=== PATIENT | female | born 1970 | race Caucasian/White ===

== ENCOUNTER 2017-01-02 09:00 | Inpatient (IN) | payer BC ==
[~2017-01-02] VITALS: Ht 170.2 cm; Wt 130.9 kg
--- NOTE | ~2017-01-02 | DS ---
[facility] 46 Y [address] [place]OM: [facility] [place] [place], [place] [address] LOCATION: [facility] ADMIT DATE: 01/08/2017 Discharge Summary DISCHARGE DATE: 01/10/2017 FAMILY PHYSICIAN: Clair Vera PA-C ATTENDING PHYSICIAN: Jeff Quan PRIMARY DIAGNOSIS: Degenerative joint disease of the left knee. SECONDARY DIAGNOSES: 1. Bipolar. 2. Hypothyroidism. 3. Diabetes mellitus type 2. 4. Hypertension. 5. Obstructive sleep apnea, on CPAP. 6. Fibromyalgia. 7. Obesity, BMI of 44. PROCEDURE PERFORMED: Left total knee arthroplasty with computer navigation. HISTORY: The patient is a 46-year-old female, who presents with advanced left knee degenerative joint disease and associated severely compromised activities of daily living. The patient has decided to proceed with total knee arthroplasty after having been thoroughly counseled regarding the risks, benefits, limitations and alternatives. Please refer to the outpatient clinic notes and admission history and physical for this patient. HOSPITAL COURSE: The patient underwent a left total knee arthroplasty on 01/08/2017 without complications. Spinal anesthesia plus adductor canal block plus periarticular local anesthesia was utilized. The patient received 24 hours of perioperative prophylactic antibiotics and remained hemodynamically stable, neurovascularly intact throughout the entire hospital course. The postoperative prophylactic deep venous thrombosis prophylaxis consisted of Xarelto 10 mg, early mobilization and pneumatic compression devices. Daily physical therapy for gait training, transfer training range of motion and quadriceps isometric exercises were received. The patient progressed well in physical therapy. On the date of discharge, 01/10/2017, the incision at the knee was healing well and showed no signs of infection. DISPOSITION: Home. DISCHARGE ACTIVITY: The patient is to bear weight as tolerated with range of motion and quadriceps isometric exercises as instructed. The operative extremity is to be elevated at least 90% of the day. There is to be sterile 4x4 gauze dressings to the incision daily. Dr. Quan is to be notified immediately if there is any increased pain, fevers, chills erythema or PATIENT'S NAME: MILAGROS DOBBS [facility] AGE: 46 Y [address] ROOM: [facility] [address] [place], [place] [address] LOCATION: [facility] ADMIT DATE: 01/08/2017 Discharge Summary DISCHARGE DATE: 01/10/2017 FAMILY PHYSICIAN: Clair Vera PA-C ATTENDING PHYSICIAN: Jeff Quan. DISCHARGE MEDICATIONS: 1. Xarelto 10 mg, take 1 tab p.o. daily for DVT prevention. 2. [place] 3/325, take 1-2 tablets p.o. every 4 hours as needed for pain. FOLLOWUP: Followup appointment is to be with Dr. Quan on 01/15/2017 for initial postoperative evaluation and x-rays at that time. BALTA BELL FOR JEFF QUAN MD TLB/modl /[id number] d: 01/17/17 0300 t: 01/22/17 0926, DISCHARGE SUMMARY
--- NOTE | ~2017-01-02 | OR ---
PATIENT'S NAME: MILAGROS DOBBS [facility] AGE: 46 Y [address] ROOM: [place] [address] LOCATION: [facility] ADMIT DATE: 01/08/2017 OR/Procedure Report DISCHARGE DATE: FAMILY PHYSICIAN: Clair Vera PA-C ATTENDING PHYSICIAN: JEFF QUAN SURGEON: Jeff Quan MD CELLOPHANE PRESS OPERATOR: Stewart Hernández PA-C and Dominick Barillas FINISHING RANGE FEEDER/DIPLOMA MAKER. DATE OF PROCEDURE: 01/08/2017 PRE-OP DIAGNOSIS: Degenerative joint disease, left knee. POST-OP DIAGNOSIS: Degenerative joint disease, left knee. OPERATION: Left total knee arthroplasty with computer navigation. ANESTHESIA: Spinal anesthesia plus adductor canal block plus periarticular local anesthesia (ropivacaine with epinephrine and Toradol). ESTIMATED BLOOD LOSS: Less than 10 mL. DRAIN: None. SPECIMEN: None. COMPLICATIONS: None. IMPLANT SYSTEM: [place] Triathlon: Size 4 left posterior stabilized femoral component. Size 3 [place] modular tibial baseplate. An 11 mm posterior stabilized size 4 X3 tibial polyethylene insert. A 32 mm oval X3 patella component (triple pegged). INDICATIONS FOR SURGERY: The patient is a 46-year-old female who presents with advanced left knee degenerative joint disease and associated severely compromised activities of daily living. The patient has decided to proceed with knee replacement after having been thoroughly counseled regarding the associated risks, benefits, and limitations. We have specifically reviewed the risks and implications of infection, deep venous thrombosis, pulmonary embolism, mortality, neurovascular complications, blood transfusion (and associated potential for disease transmission or transfusion reaction), stiffness, instability, mechanical deterioration of the components (due to wear and or loosening), and the potential need for revision. We have also emphasized the importance of active involvement and compliance with post- operative physical therapy as a means of optimizing range of motion and PATIENT'S NAME: MILAGROS DOBBS [facility] AGE: 46 Y [address] ROOM: [place] [address] LOCATION: [facility] ADMIT DATE: 01/08/2017 OR/Procedure Report DISCHARGE DATE: FAMILY PHYSICIAN: Clair Vera PA-C ATTENDING PHYSICIAN: JEFF QUAN functional recovery. Informed consent has been granted. DESCRIPTION OF PROCEDURE: The patient was positioned supine after administration of anesthesia and prophylactic antibiotics. A well-padded pneumatic tourniquet was placed around the left proximal thigh, and the left lower extremity was prepped and draped with vigilant sterile technique. The patient's name as well as the intended operative side and procedure were confirmed with a verbal time-out involving myself, the circulating nurse, the scrub nurse, and the anesthesiologist. Examination under anesthesia demonstrated no active skin lesions or masses. There was some moderate effusion. There was no erythema. There was no abnormal warmth. Range of motion under anesthesia was from full extension to 130 degrees of flexion. There was no ligamentous insufficiency. The left lower extremity was elevated and exsanguinated with an Esmarch wrap, and the pneumatic tourniquet was inflated to 300mmHg. The knee was approached through a longitudinal midline incision. A medial parapatellar arthrotomy was performed and the patella was everted. Examination of the joint space demonstrated a large amount of benign-appearing translucent synovial fluid. There was generalized non-proliferative synovitis. There was a small osteophyte at the intercondylar notch. Cruciate ligaments were intact. There was full-thickness loss of articular cartilage involving the lateral half of the femoral trochlea, the lateral 2/3rd of the patella, 90% of the medial femoral condyle, and the anteromedial 60% of the medial tibial plateau. There were small osteophytes at the medial tibial plateau as well as the superior femoral trochlea and the medial femoral trochlea. There was a moderate-sized osteophyte at the lateral margin of the femoral trochlea. There was a moderate-sized osteophyte at the medial femoral condyle. There was a 1 x 5 mm region of full-thickness articular cartilage loss at the lateral femoral condyle. There was generalized grade 2 chondromalacia at the lateral tibial plateau. Remnants of the menisci and cruciate ligaments were excised. The [employer] Frequency computer navigation femoral tracker was pinned in place at the distal aspect of the femoral trochlea. Absence of motion between the femur and the tracking device was confirmed manually and visually. Femoral osseous landmarks were obtained in order to calibrate the computer navigation system. Landmarks included the center of rotation of the ipsilateral hip, the center-point of the distal femur, the femoral AP axis, 57 points on the medial femoral condyle articular surface, and 57 points on the lateral femoral condyle articular surface. The Sky Frequency computer navigation system was subsequently utilized to position the distal femoral resection block such that the distal femoral resection was performed perfectly perpendicular to the femoral mechanical PATIENT'S NAME: MILAGROS DOBBS [facility] AGE: 46 Y [address] ROOM: [address] [address] LOCATION: [facility] ADMIT DATE: 01/08/2017 OR/Procedure Report DISCHARGE DATE: FAMILY PHYSICIAN: Clair Vera PA-C ATTENDING PHYSICIAN: JEFF QUAN. The distal femoral resection was performed with a Mixaloo oscillating saw. The Sky Frequency computer navigation tibial tracker was pinned in place at the anterior aspect of the tibial plateau. Absence of motion between the tibia and the tracking device was confirmed manually and visually. Tibial osseous landmarks were obtained in order to calibrate the computer navigation system. Landmarks included the center-point of the tibial plateau, the AP tibial axis, 57 points on the medial tibial plateau articular surface, 57 points on the lateral tibial plateau articular surface, the medial malleolus, and the lateral malleolus. The Sky Frequency computer navigation system was subsequently utilized to position the proximal tibial resection block such that the proximal tibial resection was performed perfectly perpendicular to the tibial mechanical axis. The proximal tibial resection was performed with a [employer] Precision oscillating saw. Perpendicularity of the tibial resection with respect to the tibial shaft axis was reconfirmed by inserting a spacer- block attached to an extramedullary guide sue. External rotation of the anterior and posterior femoral resections was set parallel to the epicondylar axis and carefully adjusted in order to create a rectangular flexion gap. The box resection was performed with a reciprocating saw. Anterior and posterior chamfer resections were performed with the oscillating saw. Posterior condyle osteophytes were excised with an osteotome. All other osteophytes were excised with a rongeur. Resection of all remnants of the menisci was reconfirmed. Flexion and extension gaps were confirmed to be symmetric and well balanced with a spacer-block technique. The patella resection was performed with an oscillating saw such that the composite thickness of the reconstructed patella was equivalent to the thickness of the shawnee patella. Patella tracking was optimal, and there was no need for a lateral retinacular release. All trial components were removed and all prepared osseous surfaces were thoroughly irrigated with pulsatile saline lavage and dried prior to cementing all three components in a single stage using Joyce Simplex cement containing pre-mixed tobramycin. All extruded excess cement was removed. The entire joint space was thoroughly inspected and thoroughly irrigated with bacteriostatic pulsatile saline lavage to assure that there was no residual debris of any sort. Final range of motion was from full extension (with no passive hyperextension) to 130 degrees of flexion. Patella tracking was reconfirmed to be optimal. There was very good anteroposterior stability at 90 degrees of flexion. There was 0 mm of medial lift-off to valgus stress in full extension. There was 0 mm of lateral lift-off to varus stress in full extension. PATIENT'S NAME: MILAGROS DOBBS [facility] AGE: 46 Y [address] ROOM: [place] [address] LOCATION: [facility] ADMIT DATE: 01/08/2017 OR/Procedure Report DISCHARGE DATE: FAMILY PHYSICIAN: Clair Vera PA-C ATTENDING PHYSICIAN: JEFF QUAN The arthrotomy was closed with multiple simple and [id number] interrupted #1 Vicryl. Subcutaneous tissues were thoroughly re-irrigated with bacteriostatic pulsatile saline lavage. Subcutaneous tissues were re- approximated with simple buried interrupted #0 Vicryl sutures. The skin was closed with simple buried interrupted 2-0 Vicryl sutures followed by surgical reji. The dressing consisted of Xeroform gauze, 4x4 gauze, ABD pads and two 6-inch Anthony Wraps. There were no intra-operative complications. It should be noted that the physician's assistant basketball coach played an active, integral role throughout this entire operation. By providing expert retraction, they greatly facilitated and expedited safe and effective exposure of the distal femur, proximal tibia and patella for preparation and implantation of the components. They were also actively involved in the patient's positioning, prepping and draping, as well as wound closure. MD ARLETTE ROGERS/kevon /[id number] d: 01/08/172000 t: 01/10/17 2151, OPERATIVE SUMMARY
[2017-01-02] MEDS ORDERED: PAXIL CR25 MG PO (09:02)
[2017-01-02] MEDS ORDERED: LITHIUM CARBON300 M2 PO (09:02)
[2017-01-02] MEDS ORDERED: PRINIVIL OR ZES10 MG PO (09:03)
[2017-01-02] MEDS ORDERED: ZANAFLEX4 MG PO (09:03)
[2017-01-02] MEDS ORDERED: NORCO 5-325 TA1 EACH PO (09:04)
[2017-01-02] MEDS ORDERED: ULTRAM50 MG PO (09:04)
[2017-01-02] MEDS ORDERED: SYNTHROID25 MCG PO (09:04)
[2017-01-08] MEDS ORDERED: ZYRTEC10 MG PO (11:13)
--- NOTE | 2017-01-08 19:12 | NUR ---
ARRIVED ON THE FLOOR AT 1545. 4TH 1/2 HOURLY VITAL SIGN WILL BE AT 1830. UNABLE TO MOVE LEGS OR WIGGLE TOES WHEN ARRIVED TO THE FLOOR BECAUSE OF THE SPINAL BUT AT CHANGE OF SHIFT WAS STARTING TO HAVE SOME MOVEMENT. UNABLE TO VOID DO STRAIGHT CATHED AT 1720 FOR 800 ML'S. TAKING PO WITHOUT DIFFICULTY. DRESSING CLEAN DRY AND INTACT. EZWRAP ON. HAD DILAUDID 2 MG PO AT 1750. VERY COOPERATIVE WITH CARES.
--- NOTE | 2017-01-09 05:11 | NUR ---
Significant Event: Alert and oriented X3. Hypertensive at beginning of shift wiht BPs in the 170's. BP's now running in 100's. Othwerise, VSS. Dressing to L) knee is CDI. CSM WNL. Taking PO. Voiding without difficulty. IV fluids @ 80ml/hr to L wrist. Rates pain 1-2/10. Dilaudid 2 mg given last at 0200 and tylenol at 0435. Spinal did not wear off until around 0000. Pt refused to use commode when needing to void at 0215, encouraged patiet several times but continued to refuse. Pt did sit on bedside and dangle, did very well. Stated that she fell the first time getting up after her last surgery 2 years ago. She will allow me to help her use the commode this am. Follow up: Encourage activity. History of fall last stay (knee replacement on the R).
--- NOTE | 2017-01-09 12:30 | NUR ---
Introduced self/role to patient. Her plan is to discharge to her parents home following surgery. Then will go back to her own apartment. She has all her DME from previous surgeries. Denied any barriers to going home or at home. Added my name to her marker board, will continue to follow. She plans on discharging tomorrow.
--- NOTE | 2017-01-09 17:07 | NUR ---
D: Dilaudid 2mg last given at 1400. Pt ambulates well with one assist and walker. Pt slept most of the morning. Up in recliner at this time. Dressing CDI. CSM WNL. VS stable. Routine tylenol ES.
--- NOTE | 2017-01-09 19:20 | NUR ---
I reviewed and approve of charting by SN Carlos
--- NOTE | 2017-01-10 05:26 | NUR ---
Significant Event: Patient alert and oriented. Up with 1 assist. Hypertensive with pressures 140-160s/80-90s. Remains on room air. Denies abnormal sensation. Pleasant and cooperative with cares. Follow up: continue to monitor
[2017-01-10] MEDS ORDERED: TYLENOL EXTRA500 MG PO (11:47)
[2017-01-10] MEDS ORDERED: COLACE100 MG PO (11:48)
[2017-01-10] MEDS ORDERED: MIRALAX17 GM PO (11:51)
[2017-01-10] MEDS ORDERED: XARELTO10 MG PO (11:52)
[2017-01-10] MEDS ORDERED: DILAUDID 2MG(HYD2 MG PO (11:54)
[2017-01-10] MEDS ORDERED: CELEBREX200 MG PO (11:57)
--- NOTE | 2017-01-10 18:00 | NUR ---
I reviewed and approve of charting by SN Carlos
--- NOTE | 2017-01-10 18:01 | NUR ---
D: Patient dismissed to mother's home for recovery. Taking analgesic prn for pain with relief. Lt knee incision approximated with reji. CSM WNL. Ambulates with walker and one assist. Gait steady. Patient and mother voice understanding of dismissal instructions. DIsmissed with dismissal instructions, RX and belongings.
== END 2017-01-10 17:00 | disposition disaster alternative care site (69) | DRG 470 ==
LOC: G3N 01-08 10:21
PROVIDERS: ADMIT Orthopaedic Surgery
PROC: 0SRD0J9 Replacement of Left Knee Joint with Synthetic Substitute, Cemented, Open Approach (ICD-10-PCS; principal; 2017-01-08)
DX: M17.12 Unilateral primary osteoarthritis, left knee (principal); Z68.41 Body mass index [BMI] 40.0-44.9, adult; I10 Essential (primary) hypertension; M79.7 Fibromyalgia; E11.9 Type 2 diabetes mellitus without complications; E03.9 Hypothyroidism, unspecified; G47.33 Obstructive sleep apnea (adult) (pediatric); E66.01 Morbid (severe) obesity due to excess calories; J30.2 Other seasonal allergic rhinitis; F31.9 Bipolar disorder, unspecified; Z72.0 Tobacco use; Z79.82 Long term (current) use of aspirin; Z79.52 Long term (current) use of systemic steroids; Z91.19 Patient's noncompliance with other medical treatment and regimen
CPT/HCPCS: C1713; C1776; J0690; J1100; J1885; J2001; J2250; J2795; J7040; J7120